=== PATIENT | male | born 1990 | race African-American/Black ===

== ENCOUNTER 2020-07-22 18:41 | Emergency (ER) | payer SELFPAY | END 2020-07-22 19:46 | disposition left against medical advice (07) | LOC: ER 19:44 | DX: Z53.21 Procedure and treatment not carried out due to patient leaving prior to being seen by health care provider (principal) ==

== ENCOUNTER 2023-09-18 18:28 | Emergency (ER) | payer MEDICAID ==
[~2023-09-18] VITALS: Ht 177.8 cm; Wt 58.0 kg
[2023-09-18 18:34] VITALS: TEMP 98.3; O2SAT 98
[2023-09-18] MEDS ORDERED: LIDOCAINE HCL/EPINEPHRINE 1%-EPI 1:100,000 50 ML VIAL INFIL ONE (19:15)
[2023-09-18 19:45] LABS: BASOPHILS % 0.2 % (0.0-2.0); EOSINOPHILS % 0.1 % (0.0-5.0); HEMATOCRIT. 43.2 % (42.0-52.0); HEMOGLOBIN. 14.4 g/dL (14.0-18.0); LYMPHOCYTES % 14.7 % (20.0-50.0); MEAN CORPUSCULAR HEMOGLOBIN 31.6 pg (28.0-32.0); MEAN CORPUSCULAR HGB CONC 33.5 g/dL (31.0-37.0); MEAN CORPUSCULAR VOLUME 94.6 fL (80.0-94.0); MEAN PLATELET VOLUME 7.7 fl (7.4-10.4); MONOCYTES % 9.2 % (2.0-8.0); NEUTROPHILS % 75.8 % (40.0-76.0); PLATELET 282 x1000/uL (130-400); RED BLOOD CELL COUNT 4.56 mill/uL (4.7-6.1); RED CELL DISTRIBUTION WIDTH 14.7 % (11.6-14.6); WHITE BLOOD COUNT 10.3 x1000/uL (4.5-11.0)
[2023-09-18 19:49] LABS: CHLORIDE 110 mEq/L (98-107); POTASSIUM 4.1 mEq/L (3.5-5.1); SODIUM 143 mEq/L (136-145)
[2023-09-18 19:50] LABS: CALCIUM 8.9 mg/dL (8.7-10.4); CARBON DIOXIDE 27 mEq/L (21-32)
[2023-09-18 19:55] LABS: GLUCOSE 89 mg/dL (70-105); UREA NITROGEN BLOOD 7 mg/dL (9-23)
[2023-09-18] MEDS: ONDANSETRON HCL 4MG/2ML INJ IV STA (20:00)
[2023-09-18] MEDS: MORPHINE SULFATE 4 MG/ML INJ (FOR IV/IM USE) IV STA (20:00)
[2023-09-18] MEDS: LIDOCAINE HCL/EPINEPHRINE 1%-EPI 1:100,000 20 ML VIAL INFIL NR (20:00)
[2023-09-18] MEDS: CEFAZOLIN 1000MG PREMIX 50 ML IV ONE (20:03)
[2023-09-18] MEDS: FENTANYL CITRATE/PF 50MCG/ML 2ML VIAL IV ONE (20:35)
[2023-09-18] MEDS ORDERED: DOXY100C5 MT (22:24)
[2023-09-18 22:49] VITALS: BP 138/68; PULSE 83; RESP 20; O2SAT 100
== END 2023-09-18 22:54 | disposition home or self-care (01) ==
LOC: ER 18:28
DX: S81.812A Laceration without foreign body, left lower leg, initial encounter (principal); S81.801A Unspecified open wound, right lower leg, initial encounter; R10.9 Unspecified abdominal pain; V19.9XXA Pedal cyclist (driver) (passenger) injured in unspecified traffic accident, initial encounter; Y93.89 Activity, other specified; Y92.89 Other specified places as the place of occurrence of the external cause; Y99.8 Other external cause status
CPT/HCPCS: 80048; 85025; 36415; 73590; 12002; 96365; 96375; 99284; J3010; J0690; J3490; J2405; J2270; Z7610